=== PATIENT | male | born 1975 | race Caucasian/White ===

== ENCOUNTER 2016-09-25 08:53 | Emergency (ER) | payer OTHER ==
[2016-09-25 09:17] VITALS: BP 122/90
--- NOTE | 2016-09-25 09:35 | UC ---
Respiratory Complaint HPI - History of Current Complaint Chief Complaint: UCRespiratory Stated Complaint: SORE THROAT,SINUS,EAR PAIN Time Seen by Provider: 09/25/16 09:22 Hx Obtained From: Patient Onset/Duration: Gradual Onset, Lasting Weeks - 4-5, Still Present Severity Initially: Mild Severity Currently: Moderate Character: Cough: Productive Aggravating Factors: Deep Breaths Associated Signs And Symptoms: Positive: Dyspnea, Pleuritic Chest Pain, URI, Nasal Congestion, Hoarseness, Sinus Discomfort - Risk Factors Pulmonary Embolism Risk Factors: Smoking Cardiac Risk Factors: Smoking, Diabetes - Allergies/Home Medications Allergies/Adverse Reactions: Allergies Allergy/AdvReac Type Severity Reaction Status Date / Time Sulfa Antibiotics Allergy Hives Verified 09/25/16 09:12 Home Medications: Home Medications Atorvastatin* [Lipitor 80 MG*] 80 mg PO DAILY 09/25/16 [History Confirmed ] BuPROPion XL* [Bupropion XL*] 300 mg PO DAILY 09/25/16 [History Confirmed ] Citalopram TAB* [Celexa TAB*] 40 mg PO DAILY 09/25/16 [History Confirmed ] Insulin GLARGINE(*) [Lantus(*)] 100 units SUBCUT BEDTIME 09/25/16 [History Confirmed 09/25/16] Insulin LISPRO* [HumaLOG*] 5 unit SUBCUT AC 09/25/16 [History Confirmed 09/25/16 ] Pregabalin CAP(*) [Lyrica CAP(*)] 150 mg PO TID 09/25/16 [History Confirmed ] Zolpidem TAB* [Ambien*] 10 mg PO BEDTIME PRN 09/25/16 [History Confirmed ] hydrOXYzine HCL TAB* [Atarax 25 MG TAB*] 25 mg PO DAILY 09/25/16 [History Confirmed 09/25/16] traZODone TAB* [Desyrel TAB*] 200 mg PO BEDTIME 09/25/16 [History Confirmed ] PMH/Surg Hx/FS Hx/Imm Hx Endocrine History Of: Reports: Diabetes Cardiovascular History Of: Reports: Hypertension GI/ History Of: Reports: Ulcer - Surgical History Surgical History: None - Family History Known Family History: Positive: Cardiac Disease, Diabetes - Social History Occupation: Unemployed Lives: Alone Alcohol Use: Occasionally Substance Use Type: Marijuana Substance Use Comment - Amount & Last Used: Daily Smoking Status (MU): Light Every Day Tobacco Smoker Type: Cigarettes Amount Used/How Often: <1/2 PPD Length of Time of Smoking/Using Tobacco: Since 13 Have You Smoked in the Last Year: Yes Cessation Counseling: Patient Advised to Stop - Immunization History Most Recent Influenza Vaccination: May 2016 Review of Systems Constitutional: Fever ENT: Sore Throat Respiratory: Shortness Of Breath, Cough All Other Systems Reviewed And Are Negative: Yes Physical Exam Triage Information Reviewed: Yes Appearance: No Pain Distress, Well-Nourished, Ill-Appearing Vital Signs: Initial Vital Signs Temp 98.5 F 09/25/16 09:08 Pulse 86 09/25/16 09:08 Resp 16 09/25/16 09:08 BP 122/90 09/25/16 09:08 Pulse Ox 99 09/25/16 09:08 Vital Signs Reviewed: Yes Eyes: Positive: Conjunctiva Clear ENT: Positive: Nasal congestion - with purulent post nasal drip., TMs normal Neck exam: Normal Respiratory: Positive: Wheezing Cardiovascular Exam: Normal Musculoskeletal Exam: Normal Neurological Exam: Normal Psychological Exam: Normal Skin Exam: Normal UC Diagnostic Evaluation - Laboratory O2 Sat by Pulse Oximetry: 99 Respiratory Course/Dx - Differential Dx/Diagnosis Differential Diagnosis/HQI/PQRI: Asthma, Lower Resp Infection, Sinusitis Provider Diagnoses: Acute URI. Acute sinusitis. Acute bronchospasm. Nicotine addiction Discharge - Discharge Plan Condition: Stable Disposition: HOME Prescriptions: DOXYcycline CAP(*) [DOXYcycline 100MG CAP(*)] 100 mg PO BID #20 cap predniSONE TAB* [Deltasone TAB*] 20 mg PO DAILY #18 tab Patient Education Materials: Sinusitis (ED), Doxycycline (By mouth), Bronchospasm (ED), Prednisone (By mouth) Referrals: SPEEDY Zambrano [Primary Care Provider] - 2 Weeks (recheck lungs and blood pressure)
== END 2016-09-25 10:07 | disposition home or self-care (01) ==
LOC: UCCORT 08:53
DX: J06.9 Acute upper respiratory infection, unspecified (principal); J01.90 Acute sinusitis, unspecified; J98.01 Acute bronchospasm; E11.9 Type 2 diabetes mellitus without complications; Z79.4 Long term (current) use of insulin; I10 Essential (primary) hypertension; Z88.2 Allergy status to sulfonamides; F17.210 Nicotine dependence, cigarettes, uncomplicated
CPT/HCPCS: 99212; G0463

== ENCOUNTER 2017-02-28 10:40 | Emergency (ER) | payer OTHER ==
[2017-02-28 11:01] VITALS: BP 119/69
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
== END 2017-02-28 11:22 | disposition home or self-care (01) ==
LOC: UCCORT 10:40
DX: M54.16 Radiculopathy, lumbar region (principal); E11.40 Type 2 diabetes mellitus with diabetic neuropathy, unspecified; I10 Essential (primary) hypertension; Z88.2 Allergy status to sulfonamides; F12.90 Cannabis use, unspecified, uncomplicated; F17.210 Nicotine dependence, cigarettes, uncomplicated
CPT/HCPCS: 99212; G0463

== ENCOUNTER 2017-04-27 19:52 | Emergency (ER) | payer OTHER ==
[2017-04-27 20:12] VITALS: BP 130/86
--- NOTE | 2017-04-27 20:25 | UC ---
Abdominal Pain Male HPI - HPI Summary HPI Summary: 42 year old male with abdominal pain. ABDOMINAL PAIN FOR TWO DAYS. STATES HE HAS HAD "GASTRITIS" FOR A MONTH OR TWO HE BELIEVES. SEEN AT [facility] LAST NIGHT. WAS GIVEN TWO VICODIN FOR PAIN AND A SHOT OF FENTANYL. NO VOMITING. STATES BMS HAVE BEEN NORMAL LAST BM 1800 TONIGHT. LOW BACK PAIN WELL. Has recent gastric emptying study and no results yet. Went to [facility] and had labs and given meds and discharged. Not eating today. Pain 03/19 and not checking sugar. He refuses to go to [facility] [ End ] - History of Current Complaint Chief Complaint: UCAbdominalPain Stated Complaint: ABDOMINAL PAIN Time Seen by Provider: 04/27/17 20:11 Hx Obtained From: Patient Onset/Duration: Gradual Onset Timing: Constant Severity Initially: Severe Severity Currently: Severe Location: Diffuse Radiates: No Character: Dull - Allergies/Home Medications Allergies/Adverse Reactions: Allergies Allergy/AdvReac Type Severity Reaction Status Date / Time Sulfa Antibiotics Allergy Hives Verified 04/27/17 19:59 Home Medications: Home Medications Metoclopramide HCl [Reglan] 5 mg PO 04/27/17 [History] Nausea Med ?Name 1 tab PO 04/27/17 [History] PMH/Surg Hx/FS Hx/Imm Hx - Surgical History Surgical History: None - Family History Known Family History: Positive: None, Cardiac Disease, Diabetes - Social History Alcohol Use: Occasionally Alcohol Amount: ONCE A MONTH Substance Use Type: Marijuana Substance Use Comment - Amount & Last Used: Daily Smoking Status (MU): Light Every Day Tobacco Smoker Type: Cigarettes Amount Used/How Often: 1/2 PPD Length of Time of Smoking/Using Tobacco: Since 13 Have You Smoked in the Last Year: Yes Household Exposure Type: Cigarettes - Immunization History Most Recent Influenza Vaccination: May 2016 Most Recent Tetanus Shot: UNK Review of Systems Gastrointestinal: Abdominal Pain, Nausea All Other Systems Reviewed And Are Negative: Yes Physical Exam Triage Information Reviewed: Yes Appearance: Well-Appearing, Well-Nourished, Pain Distress - moderate Vital Signs: Initial Vital Signs Temp 97.9 F 04/27/17 20:04 Pulse 88 04/27/17 20:04 Resp 18 04/27/17 20:04 BP 130/86 04/27/17 20:04 Pulse Ox 98 04/27/17 20:04 Vital Signs Reviewed: Yes Eye Exam: Normal ENT Exam: Normal Dental Exam: Normal Neck exam: Normal Neck: Positive: 1 Respiratory Exam: Normal Cardiovascular Exam: Normal Abdominal Exam: Normal Abdomen Description: Positive: Soft, Other: - tenderness to palpation mid epigastric area. Negative: CVA Tenderness (R), CVA Tenderness (L), Distended, Guarding, Peritoneal Signs Musculoskeletal Exam: Normal Neurological Exam: Normal Psychological Exam: Normal Skin Exam: Normal Abd Pain Male Course/Dx - Course Course Of Treatment: Pt has long standing uncontrolled DM and A1c > 12 he states. He needs higher level of care and labs which we can not perform here. He had GI eval earlier this week and awaiting work up from GI doc. I advise to fo to the ED and he does not want to go to [facility] but per medicaid cab rules he will only be able to go to [facility] as it is the closest ED> He left AMA and states he will go to ED if Sx worsen or he can not sleep. No acute abdomen on exam He is competent to make medical decisions. He is aware of dehydration / DKA /renal failure / . - Differential Dx/Clinical Impression Provider Diagnoses: Gastritis / Gastroparesis with uncontrolled DM-2 Discharge - Discharge Plan Condition: Guarded Disposition: AGAINST MEDICAL ADVICE Patient Education Materials: Gastroparesis (ED)
== END 2017-04-27 20:45 | disposition left against medical advice (07) ==
LOC: UCCORT 19:52
DX: K29.70 Gastritis, unspecified, without bleeding (principal); E11.43 Type 2 diabetes mellitus with diabetic autonomic (poly)neuropathy; K31.84 Gastroparesis; F17.210 Nicotine dependence, cigarettes, uncomplicated; Z88.2 Allergy status to sulfonamides
CPT/HCPCS: 99212; G0463

== ENCOUNTER 2018-01-04 10:51 | Emergency (ER) | payer OTHER ==
[2018-01-04 11:14] VITALS: BP 130/71
--- NOTE | 2018-01-04 11:17 | UC ---
Skin Complaint HPI - HPI Summary HPI Summary: 42 yo male presents with red painful area to lower abdomen. He tells me that he first noticed this about 2 weeks ago and has gotten progressively larger and more painful. Has had a skin abscess in the past that was positive for MRSA. Denies fever, chills, SOB, chest pain, n/v. - History of Current Complaint Chief Complaint: UCSkin Time Seen by Provider: 01/04/18 11:17 Stated Complaint: SKIN COMPLAINT Hx Obtained From: Patient Onset/Duration: Gradual Onset Skin Exposure Onset/Duration: Days Ago Onset Severity: Mild Current Severity: Moderate Pain Intensity: 6 Pain Scale Used: 0-10 Numeric - Allergy/Home Medications Allergies/Adverse Reactions: Allergies Allergy/AdvReac Type Severity Reaction Status Date / Time MS Sulfa Antibiotics Allergy Hives Verified 04/27/17 19:59 [Sulfa Antibiotics] Home Medications: Home Medications Insulin Glargine,Hum.rec.anlog [Basaglar Kwikpen U-100] 100 unit INJ DAILY 01/04 [History Confirmed 01/04/18] Review of Systems Constitutional: Negative Skin: Other - Abscess abdomen Respiratory: Negative Cardiovascular: Negative Gastrointestinal: Negative Neurovascular: Negative Neurological: Negative Psychological: Negative All Other Systems Reviewed And Are Negative: Yes PMH/Surg Hx/FS Hx/Imm Hx Endocrine History: Diabetes Psychological History: Anxiety - Surgical History Surgical History: Yes Surgery Procedure, Year, and Place: RECTAL POLYPECTOMY - Family History Known Family History: Positive: None, Cardiac Disease, Diabetes - Social History Lives: With Family Alcohol Use: Occasionally Alcohol Amount: ONCE A MONTH Substance Use Type: Marijuana Substance Use Comment - Amount & Last Used: Daily Smoking Status (MU): Light Every Day Tobacco Smoker Type: Cigarettes Amount Used/How Often: 1/2 PPD Length of Time of Smoking/Using Tobacco: Since 13 Have You Smoked in the Last Year: Yes Household Exposure Type: Cigarettes - Immunization History Most Recent Influenza Vaccination: May 2016 Most Recent Tetanus Shot: UNK Physical Exam - Summary Physical Exam Summary: GENERAL: NAD. WDWN. No pain distress. SKIN: Lower left abdomen: 1.0cm area of mild hardness with surrounding 3.0cm mild erythema. Mild TTP. No induration. No streaking, bleeding, or drainage. NECK: Supple. Nontender. No lymphadenopathy. CHEST: No accessory muscle use. Breathing comfortably and in no distress. CV: RRR. Without m/r/g. NEURO: Alert. CN II-XII grossly intact. PSYCH: Age appropriate behavior. Triage Information Reviewed: Yes Vital Signs: Initial Vital Signs Temp 97.3 F 01/04/18 11:05 Pulse 83 01/04/18 11:05 Resp 15 01/04/18 11:05 BP 130/71 01/04/18 11:05 Pulse Ox 99 01/04/18 11:05 Course/Dx - Course Course Of Treatment: Skin abscess abdomen. Not ready to I&D at this time. Will rx for clindamycin as pt has a hx of MRSA and allergy to sulfa. - Diagnoses Provider Diagnoses: Skin abscess abdomen Discharge - Sign-Out/Discharge Documenting (check all that apply): Discharge/Admit/Transfer - Discharge Plan Condition: Stable Disposition: HOME Prescriptions: Clindamycin HCl 300 mg PO TID #21 capsule Patient Education Materials: Abscess (ED) Referrals: Gladys Pompa NP [Primary Care Provider] - Additional Instructions: If you develop a fever, shortness of breath, chest pain, new or worsening symptoms - please call your PCP or go to the ED. - Billing Disposition and Condition Condition: STABLE Disposition: Home
== END 2018-01-04 11:26 | disposition home or self-care (01) ==
LOC: UCCORT 10:51
DX: L02.211 Cutaneous abscess of abdominal wall (principal); Z86.14 Personal history of Methicillin resistant Staphylococcus aureus infection; Z88.1 Allergy status to other antibiotic agents; E11.9 Type 2 diabetes mellitus without complications; F17.210 Nicotine dependence, cigarettes, uncomplicated
CPT/HCPCS: 99212; G0463

== ENCOUNTER 2018-08-03 18:02 | Emergency (ER) | payer OTHER ==
[2018-08-03 18:49] VITALS: BP 151/91
--- NOTE | 2018-08-03 19:33 | UC ---
UC General HPI - HPI Summary HPI Summary: pt c/o sore throat and cough x 2 days. subjective fever and chills. hx DM and notes a little bump in his sugar. - History of Current Complaint Chief Complaint: UCRespiratory Stated Complaint: SORE THROAT Time Seen by Provider: 08/03/18 19:26 Hx Obtained From: Patient Onset/Duration: Gradual Onset Timing: Constant Pain Intensity: 8 Associated Signs & Symptoms: Negative: SOB, Wheezing - Allergy/Home Medications Allergies/Adverse Reactions: Allergies Allergy/AdvReac Type Severity Reaction Status Date / Time Sulfa (Sulfonamide Allergy Hives Verified 08/03/18 18:42 Antibiotics) Home Medications: Home Medications Cyclobenzaprine TAB* [Flexeril 10 MG TAB*] 1 tab DAILY PRN 08/03/18 [History Confirmed 08/03/18] Lisinopril [Lisinopril 2.5 MG-] 1 tab DAILY 08/03/18 [History Confirmed 08/03/18 ] Zolpidem TAB* [Ambien TAB*] 10 mg PO BEDTIME 08/03/18 [History Confirmed ] PMH/Surg Hx/FS Hx/Imm Hx - Additional Past Medical History Additional PMH: neuropathy, MRSA Endocrine History: Diabetes - Surgical History Surgical History: Yes Surgery Procedure, Year, and Place: RECTAL POLYPECTOMY - Family History Known Family History: Positive: None, Cardiac Disease, Diabetes - Social History Alcohol Use: Rare Alcohol Amount: ONCE A MONTH Substance Use Type: Marijuana Substance Use Comment - Amount & Last Used: Daily Smoking Status (MU): Light Every Day Tobacco Smoker Type: Cigarettes Amount Used/How Often: 1/2 PPD Length of Time of Smoking/Using Tobacco: Since 13 Have You Smoked in the Last Year: Yes Household Exposure Type: Cigarettes - Immunization History Most Recent Influenza Vaccination: May 2016 Most Recent Tetanus Shot: UNK Review of Systems All Other Systems Reviewed And Are Negative: Yes Constitutional: Positive: Fever, Chills Skin: Positive: Negative Eyes: Positive: Negative ENT: Positive: Sore Throat Respiratory: Positive: Cough Cardiovascular: Positive: Negative Gastrointestinal: Positive: Negative Genitourinary: Positive: Negative Motor: Positive: Negative Neurovascular: Positive: Decreased Sensation - chronic Musculoskeletal: Positive: Negative Neurological: Positive: Negative Psychological: Positive: Negative Physical Exam Triage Information Reviewed: Yes Appearance: Well-Appearing Vital Signs: Initial Vital Signs Temp 97.5 F 08/03/18 18:43 Pulse 96 08/03/18 18:43 Resp 17 08/03/18 18:43 BP 151/91 08/03/18 18:43 Pulse Ox 98 08/03/18 18:43 Vital Signs Reviewed: Yes Eyes: Positive: Conjunctiva Clear ENT: Positive: Pharyngeal erythema - mild, TMs normal, Uvula midline - with mild erythema and swelling. Negative: Nasal congestion, Nasal drainage Neck: Positive: Supple, Nontender, Enlarged Nodes @ - peritonsilar Respiratory: Positive: Lungs clear, No respiratory distress, Decreased breath sounds Cardiovascular: Positive: RRR, No Murmur Abdomen Description: Positive: Nontender, No Organomegaly, Soft Bowel Sounds: Positive: Present Musculoskeletal: Positive: ROM Intact Neurological: Positive: Alert Psychological: Positive: Age Appropriate Behavior Skin Exam: Normal Course/Dx - Diagnoses Provider Diagnosis: Uvulitis, Cough in adult Discharge - Sign-Out/Discharge Documenting (check all that apply): Patient Departure All imaging exams completed and their final reports reviewed: No Studies - Discharge Plan Condition: Stable Disposition: HOME Prescriptions: Amoxicillin/Clavulanate TAB* [Augmentin TAB 875*] 875 mg PO BID 10 Days #20 tab Patient Education Materials: Uvulitis (ED), Acute Cough (ED) Referrals: Gladys Pompa NP [Primary Care Provider] - 5 Days - Billing Disposition and Condition Condition: STABLE Disposition: Home
== END 2018-08-03 19:42 | disposition home or self-care (01) ==
LOC: UCCORT 18:02
DX: K12.2 Cellulitis and abscess of mouth (principal); R05 Cough; F17.210 Nicotine dependence, cigarettes, uncomplicated; E11.9 Type 2 diabetes mellitus without complications; Z88.2 Allergy status to sulfonamides; J02.9 Acute pharyngitis, unspecified
CPT/HCPCS: 99212; G0463